=== PATIENT | female | born 1980 | race Two or more races ===

== ENCOUNTER 2024-04-21 06:13 | Emergency (ER) | payer OTHER ==
[~2024-04-21] VITALS: Ht 170.2 cm; Wt 120.2 kg
[~2024-04-21 06:13] MED LIST: LOSARTAN-HCTZ1 EAC2; OXYC1TAB9 PO; PERCOCET 5-3251 EACH PO
[2024-04-21] MEDS ORDERED: COZAAR25 MG (06:26)
[2024-04-21 06:28] VITALS: BP 167/78; O2SAT 99
[2024-04-21] MEDS ORDERED: KETOROLAC TROMETHAMINE 60 MG VIAL IM STA (09:08)
[2024-04-21] MEDS ORDERED: KETOROLAC TROMETHAMINE 60 MG VIAL IM ONE (09:12)
== END 2024-04-21 12:18 | disposition home or self-care (01) ==
LOC: ER 06:15
DX: S80.02XA Contusion of left knee, initial encounter (principal); W19.XXXA Unspecified fall, initial encounter; Y93.89 Activity, other specified; Y92.89 Other specified places as the place of occurrence of the external cause; Y99.8 Other external cause status; I10 Essential (primary) hypertension